=== PATIENT | female | born 1965 | race Caucasian/White ===

== ENCOUNTER → 2017-10-15 | Day surgery (SDC) | payer MEDICARE, MEDICAID ==
[~2017-10-15] VITALS: Ht 165.1 cm; Wt 67.1 kg
[~2017-10-15] MED LIST: ATENOLOL25 MG PO; ESTRACE 0.5MG0.5 MG PO; HYDROCODON-ACET15 ML PO; PREVACID 30MG C30 M1 PO; REQUIP2 M1 PO; SPIRIVA HA1 PUFF/INH IH; VENTOLIN H0.09 MG/AC IH; XANAX 0.25MG0.25 MG PO
[2017-10-15 13:51] VITALS: BP 142/79
[2017-10-15 14:14] VITALS: BP 127/67; BP 142/79
--- NOTE | 2017-10-15 14:39 | Procedure Note ---
Procedure detail Date of procedure: 10/15/17 Anesthesiologist: Santiago Madera Complications: None Pre-procedure diagnosis: Degenerative disease lumbar spine with levels. Lumbar spondylosis. Multilevel lumbar facet arthropathy. Post-procedure diagnosis: Same. Indications for procedure: Very pleasant 82-year-old white female the comes our procedure clinic today for RFA lumbar L3-4, L4-5, L5-S1. Patient responded significantly to medial branch blocks bilaterally at the same levels. Procedure detail: The procedure was explained to the patient in detail. Consent form was signed. Patient was taken back to the procedure room, where noninvasive monitors were placed. This included noninvasive blood pressure cuff and pulse oximeter. The patient was placed prone on the C-arm table. The area over the lumbar spine was cleansed using chlorhexidine as cleansing solution. Using fluoroscopy guidance, markers were placed over the pedicle at the RIGHT L4, L5 as well as over the sacral ala. 1% Lidocaine was used to anesthetize the skin with a 25-gauge needle at these markers. Using fluoroscopy guidance the radiofrequency probe was used to access the superior margin of the pedicle at RIGHT L4, L5 and the sacral ala. After negative motor stimulation, 2 mls of 0.25% Marcaine and 10 mg of Depo -Medrol were injected into each needle. We then proceeded with radial frequency ablation at all 3 levels at 80 degrees Celsius 60 seconds. After the lesion was formed the needles were withdrawn. Band-Aids were applied. The patient tolerated the procedure without difficulty. There were no complications Plan and disposition: Patient tolerated procedure without difficulty. There are no complications. at [id number]
[2017-10-15 14:40] VITALS: BP 134/60
== END ==
LOC: PM 09-13 11:30
PROC: 3E0T3BZ Introduction of Anesthetic Agent into Peripheral Nerves and Plexi, Percutaneous Approach (ICD-10-PCS; principal; 2017-10-15)
PROC: 3E0T33Z Introduction of Anti-inflammatory into Peripheral Nerves and Plexi, Percutaneous Approach (ICD-10-PCS; 2017-10-15)
PROC: BR161ZZ Fluoroscopy of Lumbar Facet Joint(s) using Low Osmolar Contrast (ICD-10-PCS; 2017-10-15)
DX: M51.36 Other intervertebral disc degeneration, lumbar region (principal); M47.896 Other spondylosis, lumbar region; M12.88 Other specific arthropathies, not elsewhere classified, other specified site
CPT/HCPCS: J1030